=== PATIENT | female | born 1985 | race Caucasian/White ===

== ENCOUNTER 2019-04-05 09:41 | Emergency (ER) | payer OTHER, SELFPAY ==
[2019-04-05] MEDS ORDERED: predniSONE 10 MG TAB ONE (10:44)
[2019-04-05] MEDS ORDERED: predniSONE 20 MG TAB ONE (10:44)
== END 2019-04-05 10:47 | disposition home or self-care (01) ==
LOC: SCSER 09:41
DX: L25.9 Unspecified contact dermatitis, unspecified cause (principal); G43.909 Migraine, unspecified, not intractable, without status migrainosus; J45.909 Unspecified asthma, uncomplicated
CPT/HCPCS: 99282; J7512